=== PATIENT | female | born 1940 | race Caucasian/White ===

== ENCOUNTER 2016-07-29 08:43 | Emergency (ER) | payer MEDICARE, MEDICAID ==
--- NOTE | 2016-07-29 08:47 | C.PDOC ---
History Of Present Illness 75-year-old female, presents to the emergency department with complaints of palpitations. Patient states she developed palpitations around 09:30-10:00 last night. She woke up this morning, and called 911. Patient found to be in SVT by ALS, she was treated w/ Adenosine. In ER, patient states her symptoms have resolved and she is feeling better. She says she has had these same sx happen a couple times in the past. Denies chest pain or shortness of breath. No nausea/ vomiting or fever. Time Seen by Provider: 07/29/16 08:46 Chief Complaint (Nursing): Shortness Of Breath History Per: Patient History/Exam Limitations: no limitations Past Medical History Reviewed: Historical Data, Nursing Documentation, Vital Signs Vital Signs: Last Vital Signs Temp 98.1 F 07/29/16 08:45 Pulse 88 07/29/16 10:23 Resp 20 07/29/16 10:23 BP 102/61 07/29/16 10:23 Pulse Ox 99 07/29/16 10:23 - [facility] Procedures APPLICATION OF SPLINT (11/26/13) Family History: States: No Known Family Hx - Social History Hx Tobacco Use: No Hx Alcohol Use: No Hx Substance Use: No Review Of Systems Constitutional: Negative for: Fever, Chills Cardiovascular: Positive for: Palpitations Respiratory: Negative for: Shortness of Breath Gastrointestinal: Negative for: Vomiting Musculoskeletal: Negative for: Back Pain Neurological: Negative for: Weakness, Numbness, Headache, Dizziness Physical Exam - Physical Exam Appears: Non-toxic, No Acute Distress Skin: Warm, Dry Head: Atraumatic Eye(s): bilateral: PERRL Nose: Normal Oral Mucosa: Moist Lips: No Swelling Neck: Normal ROM Cardiovascular: Rhythm Regular, No Murmur Respiratory: Normal Breath Sounds, No Decreased Breath Sounds, No Accessory Muscle Use, No Rales, No Rhonchi, No Wheezing Gastrointestinal/Abdominal: Soft, No Tenderness Extremity: Normal ROM, No Deformity, Other (echymosis, left knee/lower leg from a fall one week ago. mild ttp over prox tibia.) Neurological/Psych: Oriented x3, Normal Motor, Normal Sensation, Other (no focal deficits) Gait: Steady ED Course And Treatment - Laboratory Results Result Diagrams: 07/29/16 09:26 07/29/16 09:26 - Other Rad Left knee x-ray X-Ray: Viewed By Me, Read By Radiologist Interpretation: FINDINGS: BONES: Normal. No fracture. JOINTS: Mild multi compartment degenerative change. JOINT EFFUSION: None. OTHER FINDINGS: None. IMPRESSION: No acute findings related to/accounting for the clinical presentation. Medical Decision Making Medical Decision Making: EKG Rate 96bpm Rhythm NSR Interpret Normal [place]. Normal intervals. No acute ischemia 0915 ALS 12-kead EKG reviewed, patient was found to be in SVT 176bpm; Pt was given 6mg, followed by 12mg of Adenosine with conversion to sinus rhythm en route. xr l knee- no acute fracture 1045am pt resting quietly no distress, remains in NSR, no complaints. she says she is comfortable w dc home. follow up and return precautions advised. Disposition - Disposition Referrals: Stephane Cantor MD [Medical Doctor] - Disposition: HOME/ ROUTINE Disposition Time: 10:42 Condition: STABLE Additional Instructions: Please follow up with your doctor. Return to the ER for any worsening symptoms or for any other concerns. Instructions: Supraventricular Tachycardia (ED) Forms: General Discharge Instructions - Clinical Impression Clinical Impression: SVT (supraventricular tachycardia), Contusion of leg - Scribe Statement The provider has reviewed the documentation as recorded by the Jumana Mejias All medical record entries made by the Jesibmatthew were at my direction and personally dictated by me. I have reviewed the chart and agree that the record accurately reflects my personal performance of the history, physical exam, medical decision making, and the department course for this patient. I have also personally directed, reviewed, and agree with the discharge instructions and disposition.
[2016-07-29 09:01] VITALS: TEMP 98.1
[2016-07-29 09:30] LABS: BASO % 0.9 % (0.0-2.0); EOS # 0.1 K/uL (0.0-0.7); EOS % 2.9 % (0.0-4.0); HEMATOCRIT 36.1 % (34.0-47.0); LYMPH # 1.4 K/uL (1.0-4.3); LYMPH % 32.8 % (20.0-40.0); MEAN CELL VOLUME 87.4 fL (81.0-99.0); MEAN CORPUSCULAR HEMOGLOBIN 28.3 pg (27.0-31.0); MEAN CORPUSCULAR HGB CONC 32.3 g/dL (33.0-37.0); MEAN PLATELET VOLUME 12.9 fL (7.2-11.7); MONO # 0.5 K/uL (0.0-0.8); MONO % 11.3 % (0.0-10.0); RED CELL DISTRIBUTION WIDTH 14.5 % (11.5-14.5); WHITE BLOOD COUNT 4.3 K/uL (4.8-10.8)
[2016-07-29 09:40] LABS: CHLORIDE 102 mmol/L (98-107)
[2016-07-29 09:41] LABS: POTASSIUM 4.1 mmol/L (3.6-5.2); SODIUM 137 mmol/L (132-148)
[2016-07-29 09:43] LABS: ALB/GLOB RATIO 1.2 (1.0-2.1); ALKALINE PHOSPHATASE 76 U/L (38-126); ALT/SGPT 20 U/L (9-52); AST/SGOT 23 U/L (14-36); BILIRUBIN,TOTAL 0.6 mg/dL (0.2-1.3); BLOOD UREA NITROGEN 14 mg/dL (7-17); CALCIUM 8.6 mg/dl (8.6-10.4); CARBON DIOXIDE 23 mmol/L (22-30); GFR AFRICAN-AMERICAN > 60; GLUCOSE,RANDOM 121 mg/dL (65-105); TOTAL PROTEIN 7.2 g/dL (6.3-8.3)
[2016-07-29 10:13] LABS: THYROID STIMULATING HORMONE 1.34 mIU/L (0.46-4.68)
[2016-07-29 10:24] VITALS: BP 102/61; PULSE 88; RESP 20; O2SAT 99
--- NOTE | 2016-07-29 10:49 | RAD ---
PROCEDURE: Left Knee Radiographs. HISTORY: Posttraumatic pain. Traumatic event approximately 1 week ago. COMPARISON: None. FINDINGS: BONES: Normal. No fracture. JOINTS: Mild multi compartment degenerative change. JOINT EFFUSION: None. OTHER FINDINGS: None. IMPRESSION: No acute findings related to/accounting for the clinical presentation.
--- NOTE | 2016-08-01 12:21 | CARD ---
APPROVED REPORT EKG Measurement Heart [id number] <Conclusion> Normal sinus rhythm Cannot rule out Anterior infarct, age undetermined Abnormal ECG
== END 2016-07-29 10:56 | disposition home or self-care (01) ==
LOC: C.ER 08:43
DX: I47.1 Supraventricular tachycardia (principal); S80.12XA Contusion of left lower leg, initial encounter; X58.XXXA Exposure to other specified factors, initial encounter; Y93.9 Activity, unspecified; Y92.9 Unspecified place or not applicable

== ENCOUNTER 2016-08-24 13:06 | Observation (INO) | payer MEDICARE, MEDICAID ==
[2016-08-24] MEDS ORDERED: Metoprolol 1 mg/ml Inj IVP STA (13:56)
[2016-08-24] MEDS ORDERED: Metoprolol 1 mg/ml Inj IVP ONE (14:08)
[2016-08-24 14:17] LABS: CHLORIDE 102 mmol/L (98-107); POTASSIUM 3.6 mmol/L (3.6-5.2); SODIUM 137 mmol/L (132-148)
[2016-08-24 14:19] LABS: ALB/GLOB RATIO 1.1 (1.0-2.1); AST/SGOT 20 U/L (14-36); BILIRUBIN,TOTAL 0.6 mg/dL (0.2-1.3); CARBON DIOXIDE 23 mmol/L (22-30); GFR AFRICAN-AMERICAN > 60; TOTAL PROTEIN 6.9 g/dL (6.3-8.3)
[2016-08-24 14:20] LABS: ALKALINE PHOSPHATASE 98 U/L (38-126); ALT/SGPT 21 U/L (9-52); BLOOD UREA NITROGEN 14 mg/dL (7-17); CALCIUM 8.7 mg/dl (8.6-10.4); GLUCOSE,RANDOM 115 mg/dL (65-105)
[2016-08-24 14:28] LABS: INR 1.3
--- NOTE | 2016-08-24 14:30 | C.PDOC ---
History Of Present Illness 75 y/o female with Hx of Supraventricular Tachycardia is brought to ED by EMS noted to be supraventricular Tachycardic with a 170 heart rate. Patient was given Adenosine IV and patient returned to Normal Sinus Rhythm. No other complaints at this time. Time Seen by Provider: 08/24/16 13:45 Chief Complaint (Nursing): Chest Pain History Per: Patient History/Exam Limitations: no limitations Onset/Duration Of Symptoms: Hrs Current Symptoms Are (Timing): Still Present Past Medical History Reviewed: Historical Data, Nursing Documentation, Vital Signs Vital Signs: Last Vital Signs Temp 98.0 F 08/24/16 17:05 Pulse 69 08/24/16 17:05 Resp 20 08/24/16 17:05 BP 119/76 08/24/16 17:05 Pulse Ox 97 08/24/16 17:05 - Medical History PMH: Cardia Arrhythmia (SVT), HTN - [facility] Procedures APPLICATION OF SPLINT (11/26/13) Family History: States: Unknown Family Hx - Social History Hx Tobacco Use: No Hx Alcohol Use: No Hx Substance Use: No - Immunization History Hx Tetanus Toxoid Vaccination: No Hx Influenza Vaccination: No Hx Pneumococcal Vaccination: No Review Of Systems Except As Marked, All Systems Reviewed And Found Negative. Constitutional: Negative for: Fever, Chills Cardiovascular: Positive for: Palpitations Respiratory: Negative for: Shortness of Breath Gastrointestinal: Negative for: Nausea, Vomiting, Diarrhea Skin: Negative for: Rash Neurological: Negative for: Weakness, Headache Physical Exam - Physical Exam Appears: Non-toxic, No Acute Distress Skin: Normal Color, Warm Head: Atraumatic, Normacephalic Oral Mucosa: Moist Neck: Normal ROM Chest: Symmetrical Cardiovascular: Murmur (Holosystolic ) Respiratory: No Rales, No Rhonchi, No Wheezing Gastrointestinal/Abdominal: Soft, No Tenderness, No Guarding, No Rebound Extremity: Normal ROM, Capillary Refill (<2 seconds) Neurological/Psych: Oriented x3, Normal Speech, Normal Cognition ED Course And Treatment - Laboratory Results Result Diagrams: 08/24/16 14:06 08/24/16 14:06 Lab Interpretation: Abnormal (trop o.140H) ECG: Interpreted By Al ECG Rhythm: Sinus Rhythm ECG Interpretation: Normal Rate From EC (bpm) O2 Sat by Pulse Oximetry: 100 (RA) Pulse Ox Interpretation: Normal - Radiology CXR: Interpreted by Me CXR Interpretation: Yes: No Acute Disease Reevaluation Time: 15:03 Reassessment Condition: Improved (remains comfortable) - Physician Consult Information Outcome Of Conversation: d/w Dr. Humphreys @ 1400 and 1445, ok to tele obs. d/w Dr. Stephane Vergara- pmd- ok to adm to Dr. Humphreys- Medical Decision Making Medical Decision Making: recurrent SVT, mild elev trop, normal EKG Disposition Doctor Will See Patient In The: Office Counseled Patient/Family Regarding: Studies Performed, Diagnosis - Disposition Disposition: HOME/ ROUTINE Disposition Time: 15:04 Condition: GOOD - Clinical Impression Clinical Impression: Paroxysmal SVT (supraventricular tachycardia) - Scribe Statement The provider has reviewed the documentation as recorded by the Scribmatthew Bee All medical record entries made by the Jesibe were at my direction and personally dictated by me. I have reviewed the chart and agree that the record accurately reflects my personal performance of the history, physical exam, medical decision making, and the department course for this patient. I have also personally directed, reviewed, and agree with the discharge instructions and disposition.
[2016-08-24 14:32] LABS: BASO % 1.2 % (0.0-2.0); EOS # 0.1 K/uL (0.0-0.7); EOS % 3.6 % (0.0-4.0); HEMATOCRIT 37.5 % (34.0-47.0); LYMPH # 1.2 K/uL (1.0-4.3); LYMPH % 30.9 % (20.0-40.0); MEAN CELL VOLUME 88.4 fL (81.0-99.0); MEAN CORPUSCULAR HEMOGLOBIN 27.7 pg (27.0-31.0); MEAN CORPUSCULAR HGB CONC 31.3 g/dL (33.0-37.0); MEAN PLATELET VOLUME 14.4 fL (7.2-11.7); MONO # 0.4 K/uL (0.0-0.8); MONO % 11.4 % (0.0-10.0); NRBC % 0.2 % (0.0-2.0); RED CELL DISTRIBUTION WIDTH 14.8 % (11.5-14.5); WHITE BLOOD COUNT 3.8 K/uL (4.8-10.8)
--- NOTE | 2016-08-24 14:57 | RAD ---
PROCEDURE: CHEST RADIOGRAPH, 1 VIEW HISTORY: SOB COMPARISON: None available. FINDINGS: LUNGS: Clear. PLEURA: Hazy opacity at the left costophrenic angle which may reflect small pleural effusion. No evidence of right pleural effusion. No pneumothorax. CARDIOVASCULAR: Normal. OSSEOUS STRUCTURES: No significant abnormalities. VISUALIZED UPPER ABDOMEN: Normal. OTHER FINDINGS: None. IMPRESSION: Possible small left pleural effusion. No acute infiltrate.
[2016-08-24] MEDS ORDERED: Oxycodone/Acetaminophen 5/325 mg Tab PO PRN (16:37)
--- NOTE | 2016-08-24 16:45 | CP.PCM.HP ---
History of Present Illness - History of Present Illness History of Present Illness: 75 year old with hTN, borderline DM, no meds, had prior EST Echo with NL LV no ischemia, prior admission 07/19 to with palpitation to found with SVT converted. now reported again to ED with palpitation, again converted with adenosine, no cp, + arthritis, dementia, ? compliance with B Juan. We will increase beta juan and observe. Stable mildly elevated troponin unlikely DC with no chest pain or EKG changes. We will observe and repeat stress test as outpatient Present on Admission - Present on Admission Any Indicators Present on Admission: No Review of Systems - Review of Systems Systems not reviewed;Unavailable: Unstable Vital Signs - Constitutional Constitutional: Anorexia, Weakness - EENT Eyes: absent: Discharge Ears: absent: Ear Discharge, Dizziness Nose/Mouth/Throat: absent: Epistaxis - Cardiovascular Cardiovascular: Palpitations. absent: Acrocyanosis, Chest Pain, Diaphoresis, Pedal Edema, Syncope - Respiratory Respiratory: absent: Cough, Dyspnea, Hemoptysis - Gastrointestinal Gastrointestinal: absent: Abdominal Pain, Diarrhea, Vomiting - Genitourinary Genitourinary: absent: Change in Urinary Stream Past Patient History - Infectious Disease Hx of Infectious Diseases: None - Past Social History Smoking Status: Never Smoked - CARDIAC Hx Cardia Arrhythmia: Yes (SVT) Hx Hypertension: Yes - HEENT Hx HEENT Problems: Yes Hx Glaucoma: Yes - PSYCHIATRIC Hx Substance Use: No - SURGICAL HISTORY Hx Surgeries: Yes Hx Eye Surgery: Yes (Glaucoma sx x 3) Hx Orthopedic Surgery: Yes (LEFT KNEE) - ANESTHESIA Hx Anesthesia: Yes Hx Anesthesia Reactions: No Hx Malignant Hyperthermia: No Meds Home Medications: Home Medication List Medication Instructions Recorded Confirmed Type Metoprolol Succinate [Toprol XL] 50 mg PO DAILY #30 tab 08/25/16 Rx Allergies/Adverse Reactions: Allergies Allergy/AdvReac Type Severity Reaction Status Date / Time No Known Allergies Allergy Verified 07/29/16 08:58 Physical Exam - Constitutional Appears: Non-toxic - Head Exam Head Exam: ATRAUMATIC - Eye Exam Eye Exam: EOMI - ENT Exam ENT Exam: Mucous Membranes Moist - Neck Exam Neck exam: Negative for: Lymphadenopathy, Thyromegaly - Respiratory Exam Respiratory Exam: Clear to Auscultation Bilateral. absent: Chest Wall Tenderness, Rales - Cardiovascular Exam Cardiovascular Exam: REGULAR RHYTHM, Systolic Murmur - GI/Abdominal Exam GI & Abdominal Exam: Normal Bowel Sounds. absent: Organomegaly - Rectal Exam Rectal Exam: Deferred - Extremities Exam Extremities exam: Positive for: normal capillary refill. Negative for: calf tenderness - Neurological Exam Neurological exam: Alert, Oriented x3 - Psychiatric Exam Psychiatric exam: Normal Mood - Skin Skin Exam: Dry Results - Vital Signs Recent Vital Signs: Last Vital Signs Temp 98 F 08/24/16 16:36 Pulse 70 08/24/16 16:36 Resp 22 08/24/16 16:36 BP 108/58 L 08/24/16 16:36 Pulse Ox 97 08/24/16 16:36 - Labs Result Diagrams: 08/25/16 07:07 08/25/16 07:07 Assessment & Plan (1) Alzheimer's dementia with behavioral disturbance Status: Acute (2) Paroxysmal SVT (supraventricular tachycardia) Status: Acute Decision To Admit - Pt Status Changed To: Hospital Disposition Of: Observation - . Bed Request Type: Telemetry
[2016-08-24 17:30] VITALS: RESP 20
[2016-08-24] MEDS: Metoprolol Succinate 25 mg XL Tab PO SCH (18:50)
--- NOTE | 2016-08-24 20:00 | CARD ---
APPROVED REPORT EKG Measurement Heart [id number] <Conclusion> Normal sinus rhythm Normal ECG
[2016-08-24] MEDS: (Novolin R) Insulin Human Regular 100 units/ml vial SC SCH (21:47)
[2016-08-25 07:31] LABS: BASO % 1.2 % (0.0-2.0); EOS # 0.2 K/uL (0.0-0.7); EOS % 4.6 % (0.0-4.0); HEMATOCRIT 36.3 % (34.0-47.0); LYMPH # 2.1 K/uL (1.0-4.3); LYMPH % 53.1 % (20.0-40.0); MEAN CELL VOLUME 88.3 fL (81.0-99.0); MEAN CORPUSCULAR HEMOGLOBIN 27.8 pg (27.0-31.0); MEAN CORPUSCULAR HGB CONC 31.5 g/dL (33.0-37.0); MEAN PLATELET VOLUME 13.8 fL (7.2-11.7); MONO # 0.4 K/uL (0.0-0.8); MONO % 10.7 % (0.0-10.0); NRBC % 0.1 % (0.0-2.0); WHITE BLOOD COUNT 3.9 K/uL (4.8-10.8)
[2016-08-25 07:47] LABS: CHLORIDE 106 mmol/L (98-107)
[2016-08-25 07:48] LABS: POTASSIUM 4.3 mmol/L (3.6-5.2); SODIUM 141 mmol/L (132-148)
[2016-08-25 07:50] LABS: ALB/GLOB RATIO 1.1 (1.0-2.1); ALKALINE PHOSPHATASE 95 U/L (38-126); AST/SGOT 19 U/L (14-36); BILIRUBIN,TOTAL 0.7 mg/dL (0.2-1.3); BLOOD UREA NITROGEN 11 mg/dL (7-17); CARBON DIOXIDE 24 mmol/L (22-30); CHOLESTEROL 166 mg/dL (0-199); GFR AFRICAN-AMERICAN > 60; GLUCOSE,RANDOM 95 mg/dL (65-105); TOTAL PROTEIN 6.8 g/dL (6.3-8.3)
[2016-08-25 07:51] LABS: ALT/SGPT 14 U/L (9-52); CALCIUM 9.1 mg/dl (8.6-10.4)
[2016-08-25 08:20] VITALS: TEMP 98; O2SAT 96
[2016-08-25] MEDS: (Novolin R) Insulin Human Regular 100 units/ml vial SC SCH ×2 (08:23→13:17)
[2016-08-25] MEDS ORDERED: Enoxaparin 40 mg Syringe SC SCH (10:00)
[2016-08-25 10:25] VITALS: BP 109/73
[2016-08-25] MEDS: Metoprolol Succinate 25 mg XL Tab PO SCH (10:25)
--- NOTE | 2016-08-25 12:18 | CP.PCM.PN ---
Subjective - Date & Time of Evaluation Date of Evaluation: 08/25/16 Time of Evaluation: 12:00 - Subjective Subjective: No chest pain, no further arrhythmia, troponin is stable at 0.15 unlikely AR follow-up with stress test as outpatient, increased beta cole. Objective - Vital Signs/Intake and Output Vital Signs (last 24 hours): Temp Pulse Resp BP Pulse Ox 98.0 F 73 20 109/73 96 08/25/16 08:18 08/25/16 10:24 08/25/16 08:18 08/25/16 10:24 08/25/16 08:18 Intake and Output: 08/25/16 08/25/16 06:59 18:59 Intake Total 120 Balance 120 - Medications Medications: Current Medications Acetaminophen (Tylenol 325mg Tab) 650 mg PO Q6 PRN PRN Reason: Fever >100.4 F Aspirin (Aspirin Chewable) 81 mg PO DAILY [facility] Last Admin: 08/25/16 10:25 Dose: 81 mg Clopidogrel Bisulfate (Plavix) 75 mg PO DAILY [facility] Last Admin: 08/25/16 10:25 Dose: 75 mg Donepezil HCl (Aricept) 10 mg PO HS [facility] Last Admin: 08/24/16 21:40 Dose: 10 mg Enoxaparin Sodium (Lovenox) 40 mg SC DAILY [facility] Last Admin: 08/25/16 10:25 Dose: 40 mg Insulin Human Regular (Novolin R) 0 unit SC [facility] PRN Reason: Protocol Last Admin: 08/25/16 08:23 Dose: Not Given Metoprolol Succinate (Toprol Xl) 25 mg PO DAILY [facility] Last Admin: 08/25/16 10:25 Dose: 25 mg Ondansetron HCl (Zofran Inj) 4 mg IVP Q6 PRN PRN Reason: Nausea/Vomiting Oxycodone/Acetaminophen (Percocet 5/325 Mg Tab) 1 tab PO Q4H PRN PRN Reason: Pain, moderate (4-7) Stop: 08/27/16 16:38 Sucralfate (Carafate Tab) 1 gm PO BID [facility] Last Admin: 08/25/16 11:29 Dose: 1 gm - Labs Labs: 08/25/16 07:07 08/25/16 07:07 PT 14.8 SECONDS (9.7-12.2) H 08/24/16 14:06 INR 1.3 08/24/16 14:06 APTT 32 SECONDS (21-34) 08/24/16 14:06 - Constitutional Appears: Non-toxic - Head Exam Head Exam: ATRAUMATIC - Eye Exam Eye Exam: EOMI - ENT Exam ENT Exam: Mucous Membranes Moist - Neck Exam Neck Exam: absent: Lymphadenopathy, Thyromegaly - Respiratory Exam Respiratory Exam: Clear to Ausculation Bilateral. absent: Rales - Cardiovascular Exam Cardiovascular Exam: REGULAR RHYTHM - GI/Abdominal Exam GI & Abdominal Exam: Normal Bowel Sounds. absent: Organomegaly - Rectal Exam Rectal Exam: Deferred - Extremities Exam Extremities Exam: Normal Capillary Refill. absent: Calf Tenderness - Neurological Exam Neurological Exam: Alert, Oriented x3 - Psychiatric Exam Psychiatric exam: Normal Mood - Skin Skin Exam: Dry Assessment and Plan (1) Alzheimer's dementia with behavioral disturbance Status: Acute (2) Paroxysmal SVT (supraventricular tachycardia) Status: Acute
--- NOTE | 2016-08-25 13:22 | CP.PCM.PN ---
Subjective - Date & Time of Evaluation Date of Evaluation: 08/25/16 Time of Evaluation: 13:22 - Subjective Subjective: 75 Y/O FEMALE SEEN AND EXAMINED TODAY BY DR DENT, PT WITH PMHX HTN, DM, ECHO WITH NORMAL LV, NO ISCHEMIA, PT ADMITTED FOR PALPITATION, SVT CONVERTED W/ ADENOSINE, TROP STABLE 0.15, PT AAOX3, DENIES ANY CP,SOB, METOPROLOL INCREASED PER DR DENT, F/U W/DR DENT IN THE OFFICE, RETURN TO ED IF ANY WORSENING S /S, AGREE, VERBALIZE UNDERSTANDING. Objective - Vital Signs/Intake and Output Vital Signs (last 24 hours): Temp Pulse Resp BP Pulse Ox 98.0 F 73 20 109/73 96 08/25/16 08:18 08/25/16 10:24 08/25/16 08:18 08/25/16 10:24 08/25/16 08:18 Intake and Output: 08/25/16 08/25/16 06:59 18:59 Intake Total 120 Balance 120 - Medications Medications: Current Medications Acetaminophen (Tylenol 325mg Tab) 650 mg PO Q6 PRN PRN Reason: Fever >100.4 F Aspirin (Aspirin Chewable) 81 mg PO DAILY [facility] Last Admin: 08/25/16 10:25 Dose: 81 mg Clopidogrel Bisulfate (Plavix) 75 mg PO DAILY [facility] Last Admin: 08/25/16 10:25 Dose: 75 mg Donepezil HCl (Aricept) 10 mg PO HS [facility] Last Admin: 08/24/16 21:40 Dose: 10 mg Enoxaparin Sodium (Lovenox) 40 mg SC DAILY [facility] Last Admin: 08/25/16 10:25 Dose: 40 mg Insulin Human Regular (Novolin R) 0 unit SC [facility] PRN Reason: Protocol Last Admin: 08/25/16 13:17 Dose: 2 unit Metoprolol Succinate (Toprol Xl) 25 mg PO DAILY [facility] Last Admin: 08/25/16 10:25 Dose: 25 mg Ondansetron HCl (Zofran Inj) 4 mg IVP Q6 PRN PRN Reason: Nausea/Vomiting Oxycodone/Acetaminophen (Percocet 5/325 Mg Tab) 1 tab PO Q4H PRN PRN Reason: Pain, moderate (4-7) Stop: 08/27/16 16:38 Sucralfate (Carafate Tab) 1 gm PO BID [facility] Last Admin: 08/25/16 11:29 Dose: 1 gm - Labs Labs: 08/25/16 07:07 08/25/16 07:07 PT 14.8 SECONDS (9.7-12.2) H 08/24/16 14:06 INR 1.3 08/24/16 14:06 APTT 32 SECONDS (21-34) 08/24/16 14:06
[2016-08-25 15:44] VITALS: PULSE 86
--- NOTE | 2016-08-25 16:40 | CP.PCM.DIS ---
Provider - Provider Date of Admission: 08/24/16 14:52 Attending physician: Shruti Dent MD Time Spent in preparation of Discharge (in minutes): 20 Diagnosis - Discharge Diagnosis (1) Paroxysmal SVT (supraventricular tachycardia) Status: Acute (2) Alzheimer's dementia with behavioral disturbance Status: Acute Hospital Course - Lab Results Lab Results: Most Recent Lab Values WBC 3.9 K/uL (4.8-10.8) L 08/25/16 07:07 RBC 4.11 Mil/uL (3.80-5.20) 08/25/16 07:07 Hgb 11.4 g/dL (11.0-16.0) 08/25/16 07:07 Hct 36.3 % (34.0-47.0) 08/25/16 07:07 MCV 88.3 fL (81.0-99.0) 08/25/16 07:07 MCH 27.8 pg (27.0-31.0) 08/25/16 07:07 MCHC 31.5 g/dL (33.0-37.0) L 08/25/16 07:07 RDW 15.0 % (11.5-14.5) H 08/25/16 07:07 Plt Count 103 K/uL (130-400) L 08/25/16 07:07 MPV 13.8 fL (7.2-11.7) H 08/25/16 07:07 Neut % (Auto) 30.4 % (50.0-75.0) L 08/25/16 07:07 Lymph % (Auto) 53.1 % (20.0-40.0) H 08/25/16 07:07 [place] % (Auto) 10.7 % (0.0-10.0) H 08/25/16 07:07 Eos % (Auto) 4.6 % (0.0-4.0) H 08/25/16 07:07 Baso % (Auto) 1.2 % (0.0-2.0) 08/25/16 07:07 Neut # 1.2 K/uL (1.8-7.0) L 08/25/16 07:07 Lymph # 2.1 K/uL (1.0-4.3) 08/25/16 07:07 [place] # 0.4 K/uL (0.0-0.8) 08/25/16 07:07 Eos # 0.2 K/uL (0.0-0.7) 08/25/16 07:07 Baso # 0.0 K/uL (0.0-0.2) 08/25/16 07:07 Differential Comment 08/24/16 14:06 PT 14.8 SECONDS (9.7-12.2) H 08/24/16 14:06 INR 1.3 08/24/16 14:06 APTT 32 SECONDS (21-34) 08/24/16 14:06 Sodium 141 mmol/L (132-148) 08/25/16 07:07 Potassium 4.3 mmol/L (3.6-5.2) 08/25/16 07:07 Chloride 106 mmol/L (98-107) 08/25/16 07:07 Carbon Dioxide 24 mmol/L (22-30) 08/25/16 07:07 Anion Gap 14 (10-20) 08/25/16 07:07 BUN 11 mg/dL (7-17) 08/25/16 07:07 Creatinine 0.8 MG/DL (0.7-1.2) 08/25/16 07:07 Est GFR ( Amer) > 60 08/25/16 07:07 Est GFR (Non-Af Amer) > 60 08/25/16 07:07 POC Glucose (mg/dL) 154 mg/dL (65-110) H 08/25/16 11:14 Random Glucose 95 mg/dL (65-105) 08/25/16 07:07 Hemoglobin A1c 5.2 % (4.2-6.5) 08/25/16 07:07 Calcium 9.1 mg/dl (8.6-10.4) 08/25/16 07:07 Total Bilirubin 0.7 mg/dL (0.2-1.3) 08/25/16 07:07 AST 19 U/L (14-36) 08/25/16 07:07 ALT 14 U/L (9-52) 08/25/16 07:07 Alkaline Phosphatase 95 U/L (38-126) 08/25/16 07:07 Total Creatine Kinase 48 U/L (30-135) 08/25/16 13:35 CK-MB (Mass) 1.20 ng/mL (0.0-3.38) 08/25/16 13:35 Troponin I 0.1400 ng/mL (0.00-0.120) H* 08/24/16 14:06 Troponin I, Quant 0.1230 ng/mL (0.00-0.120) H* 08/25/16 13:35 NT-Pro-B Natriuret Pep 3100 pg/mL (0-900) H 08/24/16 14:06 Total Protein 6.8 g/dL (6.3-8.3) 08/25/16 07:07 Albumin 3.6 g/dL (3.5-5.0) 08/25/16 07:07 Globulin 3.2 gm/dL (2.2-3.9) 08/25/16 07:07 Albumin/Globulin Ratio 1.1 (1.0-2.1) 08/25/16 07:07 Triglycerides 47 mg/dL (0-149) 08/25/16 07:07 Cholesterol 166 mg/dL (0-199) 08/25/16 07:07 LDL Cholesterol Direct 99 mg/dL (0-129) 08/25/16 07:07 HDL Cholesterol 51 mg/dL (30-70) 08/25/16 07:07 TSH 3rd Generation 3.40 mIU/L (0.46-4.68) 08/25/16 07:07 - Hospital Course Hospital Course: 75 year old with NL LV on prior eval no ischemia ON EST admitted with svt converted with adenosine, increased b cole, observe Discharge Exam - Head Exam Head Exam: ATRAUMATIC - Eye Exam Eye Exam: EOMI - ENT Exam ENT Exam: Mucous Membranes Moist - Neck Exam Neck exam: Full Rom - Respiratory Exam Respiratory Exam: Clear to PA & Lateral. absent: Rales - Cardiovascular Exam Cardiovascular Exam: REGULAR RHYTHM, Systolic Murmur - GI/Abdominal Exam GI & Abdominal Exam: Normal Bowel Sounds. absent: Organomegaly - Rectal Exam Rectal Exam: Deferred - Extremities Exam Extremities exam: normal capillary refill - Neurological Exam Neurological exam: Alert, Oriented x3 - Psychiatric Exam Psychiatric exam: Normal Mood - Skin Skin Exam: Dry Discharge Plan - Discharge Medications Prescriptions: Metoprolol Succinate [Toprol XL] 50 mg PO DAILY #30 tab - Follow Up Plan Condition: GOOD Disposition: HOME/ ROUTINE Instructions: Metoprolol (By mouth), Supraventricular Tachycardia (DC), Heart Healthy Diet (DC) Additional Instructions: PLEASE FOLLOW UP WITH DR DENT IN THE OFFICE IN 2-3 DAYS CONTINUE MEDICATIONS PER MED REC OUTPATIENT STRESS TEST RETURN TO ED IF ANY CHEST PAIN, SHORTNESS OF BREATH, PALPITATIONS OR ANY OTHER CONCERNING SYMPTOMS Referrals: Shruti Dent MD [Staff Provider] -
== END 2016-08-25 15:00 | disposition home or self-care (01) ==
LOC: C.ER 13:06 → C.9E 14:52 → C.6T 16:31
PROVIDERS: ADMIT Internal Medicine Cardiovascular Disease; ATTEND Internal Medicine Cardiovascular Disease
DX: I47.1 Supraventricular tachycardia (principal); I10 Essential (primary) hypertension; E11.9 Type 2 diabetes mellitus without complications; G30.9 Alzheimer's disease, unspecified; F02.81 Dementia in other diseases classified elsewhere, unspecified severity, with behavioral disturbance
CPT/HCPCS: 36415; 71010; 80053; 80061; 82948; 83036; 83880; 84443; 84484; 85025; 85610; 85730; 93005; 96374; 97116; 97161; 99285; G0378; G8978; G8979; J1650

== ENCOUNTER 2018-08-02 09:33 | Emergency (ER) | payer MEDICARE, MEDICAID ==
[2018-08-02] MEDS ORDERED: Sodium Chloride 0.9% 500 ML IV ONE (10:49)
[2018-08-02 10:56] LABS: BASO # 0.1 K/uL (0.0-0.2); BASO % 1.7 % (0.0-2.0); EOS # 0.2 K/uL (0.0-0.7); EOS % 5.5 % (0.0-4.0); LYMPH # 1.3 K/uL (1.0-4.3); LYMPH % 41.2 % (20.0-40.0); MEAN CORPUSCULAR HGB CONC 31.5 g/dL (33.0-37.0); MEAN PLATELET VOLUME 11.2 fL (7.2-11.7); MONO # 0.4 K/uL (0.0-0.8); MONO % 12.5 % (0.0-10.0); NEUT # 1.3 K/uL (1.8-7.0); NEUT % 39.1 % (50.0-75.0); RBC 3.96 Mil/uL (3.80-5.20); RED CELL DISTRIBUTION WIDTH 19.9 % (11.5-14.5); WHITE BLOOD COUNT 3.3 K/uL (4.8-10.8)
[2018-08-02 11:09] LABS: HEMOGLOBIN 8.7 g/dL (11.0-16.0); MEAN CELL VOLUME 69.7 fL (81.0-99.0)
[2018-08-02 11:10] LABS: ALB/GLOB RATIO 1.2 (1.0-2.1); ALT/SGPT 13 U/L (9-52); AST/SGOT 18 U/L (14-36); BLOOD UREA NITROGEN 13 mg/dL (7-17); CALCIUM 9.1 mg/dl (8.6-10.4); GFR NON-AFRICAN AMERICAN > 60; LIPASE 161 U/L (23-300)
--- NOTE | 2018-08-02 11:22 | C.PDOC ---
History Of Present Illness 77 y/o female pt presents to the ER c/o 6 episodes of diarrhea since yesterday. Associated sx includes weakness and dizziness. Pt also fell today on her chest. Pt denies vomiting, fever, SOB, sick contact, unusual food intake, blurry vision, and head injuries. Time Seen by Provider: 08/02/18 09:40 Chief Complaint (Nursing): Abdominal Pain History Per: Patient History/Exam Limitations: no limitations Onset/Duration Of Symptoms: Days (x1) Current Symptoms Are (Timing): Still Present Past Medical History Reviewed: Historical Data, Nursing Documentation, Vital Signs Vital Signs: Last Vital Signs Temp 97.9 F 08/02/18 09:39 Pulse 94 H 08/02/18 09:39 Resp 20 08/02/18 09:39 BP 118/68 08/02/18 09:39 Pulse Ox 99 08/02/18 09:39 Primary Care Provider: Stephane Cantor - Medical History PMH: Asthma, Cardia Arrhythmia (SVT), HTN - [facility] Procedures APPLICATION OF SPLINT (11/26/13) Family History: States: Unknown Family Hx - Social History Hx Tobacco Use: No Hx Alcohol Use: No Hx Substance Use: No - Immunization History Hx Tetanus Toxoid Vaccination: No Hx Influenza Vaccination: No Hx Pneumococcal Vaccination: No Review Of Systems Constitutional: Positive for: Weakness. Negative for: Fever, Other (sick contact, unusual food intake, head injuries) Respiratory: Negative for: Shortness of Breath Gastrointestinal: Positive for: Diarrhea (6 episodes). Negative for: Vomiting Neurological: Positive for: Dizziness Physical Exam - Physical Exam Appears: Non-toxic, No Acute Distress Skin: Warm, Dry Head: Atraumatic, Normacephalic Eye(s): bilateral: EOMI Chest: Symmetrical, No Deformity, No Tenderness, No Ecchymosis Cardiovascular: Rhythm Regular Respiratory: Normal Breath Sounds Gastrointestinal/Abdominal: Soft, Tenderness (epigastric), No Distention, No Guarding Back: No CVA Tenderness Extremity: Normal ROM (x4) Neurological/Psych: Oriented x3, Normal Speech ED Course And Treatment - Laboratory Results Result Diagrams: 08/02/18 10:52 08/02/18 10:52 Lab Results: Total Bilirubin 0.3 mg/dL (0.2-1.3) 08/02/18 10:52 AST 18 U/L (14-36) 08/02/18 10:52 ALT 13 U/L (9-52) 08/02/18 10:52 Alkaline Phosphatase 110 U/L (38-126) 08/02/18 10:52 Total Protein 7.2 g/dL (6.3-8.3) 08/02/18 10:52 Albumin 4.0 g/dL (3.5-5.0) 08/02/18 10:52 Globulin 3.2 gm/dL (2.2-3.9) 08/02/18 10:52 Albumin/Globulin Ratio 1.2 (1.0-2.1) 08/02/18 10:52 Lipase 161 U/L (23-300) 08/02/18 10:52 O2 Sat by Pulse Oximetry: 99 (RA) Pulse Ox Interpretation: Normal - CT Scan/US ct abd/pelvis Other Rad Studies (CT/US): Read By Radiologist, Radiology Report Reviewed CT/US Interpretation: Accession No. : [id number]. Patient Name / ID : NEGRO GUTIERREZ / [id number]. Exam Date : 08/02/2018 11:58:41 ( Approved ). Study Comment : Sex / Age : F / 77Y. Creator : Enma Tariq. Dictator : Negro Flores MD. Anime Designer : Well Drill Operator Helper Cable Tool : Negro Flores MD. Approver2 : Report Date : 08/02/2018 12:12:30. My Comment : . Date of service: 08/02/2018. PROCEDURE: CT Abdomen and Pelvis with contrast. HISTORY: ABDOMINAL PAIN DIARRHEA WEAKNESS. COMPARISON: Not available. TECHNIQUE: Contrast dose: 100 mL Visipaque 320. Radiation dose: Total exam DLP = 461.41 mGy-cm. This CT exam was performed using one or more of the following dose reduction techniques: Automated exposure control, adjustment of the mA and/or kV according to patient size, and/or use of iterative reconstruction technique. FINDINGS: LOWER THORAX: Very small hiatal hernia. LIVER: Unremarkable. No gross lesion or ductal dilatation. GALLBLADDER AND BILE DUCTS: Partially contracted. No calcified gallstones. No mural thickening. PANCREAS: Unremarkable. No gross lesion or ductal dilatation. SPLEEN: Unremarkable. ADRENALS: Unremarkable. No mass. KIDNEYS AND URETERS: Unremarkable. No hydronephrosis. No solid mass. VASCULATURE: Unremarkable. No aortic aneurysm. There is atherosclerotic calcification of the abdominal aorta. BOWEL: Sigmoid diverticulosis without evidence of diverticulitis. No bowel obstruction. Small diverticulum of the 2nd duodenum protruding through the ampulla. No other abnormal bowel loops are appreciated. APPENDIX: Normal appendix. PERITONEUM: Unremarkable. No free fluid. No free air. LYMPH NODES: Unremarkable. No enlarged lymph nodes. BLADDER: Unremarkable. REPRODUCTIVE: Normal postmenopausal uterus. BONES: No acute fracture. OTHER FINDINGS: None. IMPRESSION: No acute abnormality. Sigmoid diverticulosis. No evidence of diverticulitis. Small hiatal hernia. Incidental diverticulum of the 2nd duodenum. Progress Note: Plans: -- labs. -- CT abdomen and pelvis. -- CXR. -- IV fluids Disposition Counseled Patient/Family Regarding: Studies Performed, Diagnosis, Need For Followup, Rx Given - Disposition Referrals: Stephane Cantor MD [Medical Doctor] - Disposition: HOME/ ROUTINE Disposition Time: 14:30 Condition: STABLE Additional Instructions: FOLLOW UP WITH YOUR DOCTOR IN 1-2 DAYS USE IRON DAILY RETURN TO ER IF YOUR SYMPTOMS WORSEN Prescriptions: Dicyclomine [Bentyl] 20 mg PO Q6 PRN #12 tab PRN Reason: ABDOMINAL CRAMPING Ferrous Sulfate 325 mg PO DAILY #30 tablet Instructions: Diarrhea and Traveler's Diarrhea, Adult (DC) Forms: [employer] ([place]) Print Language: WELSH - Clinical Impression Clinical Impression: Diarrhea, Anemia - Scribe Statement The provider has reviewed the documentation as recorded by the Jumana Long Do Provider Attestation: All medical record entries made by the Jumana were at my direction and personally dictated by me. I have reviewed the chart and agree that the record accurately reflects my personal performance of the history, physical exam, medical decision making, and the department course for this patient. I have also personally directed, reviewed, and agree with the discharge instructions and disposition.
--- NOTE | 2018-08-02 11:32 | C.PDOC ---
Time Seen by Provider: 08/02/18 09:40 Chief Complaint (Nursing): Abdominal Pain Past Medical History Vital Signs: Last Vital Signs Temp 97.9 F 08/02/18 09:39 Pulse 94 H 08/02/18 09:39 Resp 20 08/02/18 09:39 BP 118/68 08/02/18 09:39 Pulse Ox 99 08/02/18 09:39 Primary Care Provider: Stephane Cantor - Medical History PMH: Asthma, Cardia Arrhythmia (SVT), HTN Denies: Chronic Kidney Disease - [facility] Procedures APPLICATION OF SPLINT (11/26/13) Family History: States: Unknown Family Hx - Social History Hx Tobacco Use: No Hx Alcohol Use: No Hx Substance Use: No - Immunization History Hx Tetanus Toxoid Vaccination: No Hx Influenza Vaccination: No Hx Pneumococcal Vaccination: No ED Course And Treatment O2 Sat by Pulse Oximetry: 99 Disposition - Disposition
[2018-08-02] MEDS ORDERED: Iodixanol 320 MG/ML 100 ML BOTTLE IV ONE (11:47)
[2018-08-02 12:05] LABS: SQUAMOUS EPITHIAL 4 /hpf (0-5)
[2018-08-02 12:07] LABS: PH,URINE 5.5 (5.0-8.0); URINE BILIRUBIN NEGATIVE (NEGATIVE); URINE BLOOD TRACE-INTACT (NEGATIVE); URINE CLARITY Clear (Clear); URINE COLOR YELLOW (YELLOW); URINE GLUCOSE (UA) NEGATIVE (Normal); URINE PROTEIN NEGATIVE (NEGATIVE); URINE UROBILINOGEN 0.2 mg/dL (0.2-1.0)
[2018-08-02 12:08] LABS: URINE LEUKOCYTE ESTERASE NEGATIVE Leu/uL (Negative)
--- NOTE | 2018-08-02 12:54 | CT ---
Date of service: 08/02/2018 PROCEDURE: CT Abdomen and Pelvis with contrast HISTORY: ABDOMINAL PAIN DIARRHEA WEAKNESS COMPARISON: Not available TECHNIQUE: Contrast dose: 100 mL Visipaque 320 Radiation dose: Total exam DLP = 461.41 mGy-cm. This CT exam was performed using one or more of the following dose reduction techniques: Automated exposure control, adjustment of the mA and/or kV according to patient size, and/or use of iterative reconstruction technique. FINDINGS: LOWER THORAX: Very small hiatal hernia. LIVER: Unremarkable. No gross lesion or ductal dilatation. GALLBLADDER AND BILE DUCTS: Partially contracted. No calcified gallstones. No mural thickening. PANCREAS: Unremarkable. No gross lesion or ductal dilatation. SPLEEN: Unremarkable. ADRENALS: Unremarkable. No mass. KIDNEYS AND URETERS: Unremarkable. No hydronephrosis. No solid mass. VASCULATURE: Unremarkable. No aortic aneurysm. There is atherosclerotic calcification of the abdominal aorta. BOWEL: Sigmoid diverticulosis without evidence of diverticulitis. No bowel obstruction. Small diverticulum of the 2nd duodenum protruding through the ampulla. No other abnormal bowel loops are appreciated APPENDIX: Normal appendix. PERITONEUM: Unremarkable. No free fluid. No free air. LYMPH NODES: Unremarkable. No enlarged lymph nodes. BLADDER: Unremarkable. REPRODUCTIVE: Normal postmenopausal uterus. BONES: No acute fracture. OTHER FINDINGS: None. IMPRESSION: No acute abnormality. Sigmoid diverticulosis. No evidence of diverticulitis. Small hiatal hernia. Incidental diverticulum of the 2nd duodenum.
--- NOTE | 2018-08-02 14:52 | RAD ---
Date of service: 08/02/2018 HISTORY: CHEST PAIN AFTER FALL COMPARISON: Comparison chest dated 08/24/2016 TECHNIQUE: 1 view obtained. FINDINGS: LUNGS: Minor bibasilar atelectasis PLEURA: No significant pleural effusion identified, no pneumothorax apparent. CARDIOVASCULAR: Minor aortic atherosclerotic calcification present. Cardiomegaly. No pulmonary vascular congestion. OSSEOUS STRUCTURES: No significant abnormalities. VISUALIZED UPPER ABDOMEN: Normal. OTHER FINDINGS: None. IMPRESSION: Minor bibasilar atelectasis.
[2018-08-02 15:10] VITALS: BP 131/78; PULSE 90; RESP 19; TEMP 97.8; O2SAT 100
== END 2018-08-02 16:02 | disposition home or self-care (01) ==
LOC: C.ER 09:33
DX: R19.7 Diarrhea, unspecified (principal); D64.9 Anemia, unspecified
CPT/HCPCS: 71045; 74177; 80053; 81001; 83690; 85025; 99285; J7040; Q9967